=== PATIENT | female | born 1975 ===

== ENCOUNTER 2017-08-22 15:53 | Emergency (ER) | payer SELFPAY ==
[2017-08-22 16:26] VITALS: BP 115/72; PULSE 72; RESP 16; TEMP 98.1; O2SAT 100
--- NOTE | 2017-08-22 17:23 | ED PDOC ---
HPI: Abdomen Time Seen by Provider: 08/22/17 17:11 Chief Complaint (Nursing): Abdominal Pain Chief Complaint (Provider): Suprapubic pain, (+) preg History Per: Patient History/Exam Limitations: no limitations Additional Complaint(s): 42 yo with history of 2 ectopic pregnancies presents with suprapubic pain and low back pain since last night. PT states LMP was 07/10/17 and she had a positive at home. Pt denies vaginal bleeding. PT reports one surgery for ectopic . Past Medical History Reviewed: Historical Data, Nursing Documentation, Vital Signs Vital Signs: Last Vital Signs Temp 98.1 F 08/22/17 16:22 Pulse 72 08/22/17 16:22 Resp 16 08/22/17 16:22 BP 115/72 08/22/17 16:22 Pulse Ox 100 08/22/17 17:24 - Medical History PMH: Gall Bladder Disease (gallstones) - Surgical History Surgical History: Other surgeries: Ectopic - Family History Family History: States: Unknown Family Hx - Home Medications Home Medications: Ambulatory Orders Medication Instructions Recorded Ondansetron ODT [Zofran ODT] 4 mg PO Q6 PRN #16 odt 01/18/16 Oxycodone HCl/Acetaminophen 1 tab PO Q6 PRN #12 tab 01/18/16 [Percocet 325 mg-5 mg] Dicyclomine [Bentyl] 20 mg PO Q6 PRN #12 tab 07/30/16 Famotidine [Pepcid] 40 mg PO DAILY #10 tab 07/30/16 Omeprazole 40 mg PO DAILY #30 tab 07/30/16 Ondansetron [Zofran] 4 mg PO Q8H #8 tab 07/30/16 - Allergies Allergies/Adverse Reactions: Allergies Allergy/AdvReac Type Severity Reaction Status Date / Time No Known Allergies Allergy Verified 07/30/16 00:03 Review of Systems ROS Statement: Except As Marked, All Systems Reviewed And Found Negative Constitutional: Negative for: Fever, Chills Genitourinary Female: Positive for: Pelvic Pain. Negative for: Vaginal Discharge, Vaginal Bleeding Physical Exam - Reviewed Nursing Documentation Reviewed: Yes Vital Signs Reviewed: Yes - Physical Exam Appears: Positive for: Well, Non-toxic, No Acute Distress Head Exam: Positive for: ATRAUMATIC, NORMAL INSPECTION, NORMOCEPHALIC Skin: Positive for: Normal Color, Warm, DRY Eye Exam: Positive for: Normal appearance ENT: Positive for: Normal ENT Inspection Neck: Positive for: Normal, Painless ROM Cardiovascular/Chest: Positive for: Regular Rate, Rhythm Respiratory: Positive for: Normal Breath Sounds. Negative for: Accessory Muscle Use, Respiratory Distress Gastrointestinal/Abdominal: Positive for: Normal Exam, Bowel Sounds, Soft. Negative for: Tenderness Back: Positive for: Normal Inspection Extremity: Positive for: Normal ROM Neurologic/Psych: Positive for: Alert, Oriented - Laboratory Results Result Diagrams: 08/22/17 17:23 08/22/17 17:23 - ECG O2 Sat by Pulse Oximetry: 100 Pulse Ox Interpretation: Normal Medical Decision Making Medical Decision Making: Endorsed pending ENGINEERING VICE PRESIDENT Disposition - Clinical Impression Clinical Impression: Abdominal pain affecting - Patient ED Disposition Is Patient to be Admitted: Transfer of Care - Disposition Disposition: Transfer of Care Disposition Time: 20:06 Condition: GOOD Forms: [facility] [employer] [facility] (Polish)
[2017-08-22 17:34] LABS: HEMOGLOBIN 12.5 g/dL (12.0-16.0); MEAN CELL VOLUME 82.4 fl (81.0-99.0); MEAN CORPUSCULAR HEMOGLOBIN 27.1 pg (27.0-31.0); MEAN CORPUSCULAR HGB CONC 32.9 g/dL (33.0-37.0); RBC 4.6 Mil/uL (3.80-5.20); RED CELL DISTRIBUTION WIDTH 13.8 % (11.5-14.5); WHITE BLOOD COUNT 8.4 K/uL (4.8-10.8)
[2017-08-22 17:43] LABS: ALB/GLOB RATIO 1.1 (1.0-2.1); ALT/SGPT 35 U/L (9-52); AST/SGOT 21 U/L (14-36); BLOOD UREA NITROGEN 13 mg/dl (7-17); CALCIUM 9.3 mg/dL (8.4-10.2); GFR AFRICAN-AMERICAN > 60; GFR NON-AFRICAN AMERICAN > 60
[2017-08-22 18:09] LABS: SQUAMOUS EPITHIAL 7 /hpf (0-5); URINE BACTERIA FEW (<OCC); URINE BILIRUBIN NEGATIVE (NEGATIVE); URINE BLOOD SMALL (NEGATIVE); URINE CLARITY CLOUDY (Clear); URINE COLOR AMBER (YELLOW); URINE GLUCOSE (UA) NEG (Normal); URINE HYALINE CAST 0-2 /hpf (0-2); URINE LEUKOCYTE ESTERASE NEG Leu/uL (Negative); URINE NITRATE NEGATIVE (NEGATIVE); URINE PROTEIN 100 mg/dL (NEGATIVE); URINE UROBILINOGEN 0.2-1.0 mg/dL (0.2-1.0)
--- NOTE | 2017-08-22 19:51 | US ---
EXAM: US , Transvaginal CLINICAL HISTORY: 42 years old, female; Pain; complicated by abdominal or pelvic pain; Generalized abdominal pain; First trimester; Gestational age or lmp: 07/10/2017; Additional info: Pelvic pain, preg, HX ectopic TECHNIQUE: Real-time transvaginal obstetrical ultrasound of the maternal pelvis and a first trimester with image documentation. Transvaginal imaging was used for better evaluation of the fetus and adnexa. COMPARISON: No relevant prior studies available. FINDINGS: Gestation: 0.5 x 0.3 x 0.8 cm saclike structure within uterus. No yolk sac. No pole. Uterus/cervix: Two uterine masses, larger measuring 0.9 x 0.6 x 1.1 cm. Endometrium: 2.0 cm in thickness. Closed cervix. Ovaries: RIGHT ovary: 1.9 x 1.5 x 1.7 cm hypoechoic lesion with few septations. LEFT ovary: Normal. No adnexal masses. Free fluid: No significant free fluid. IMPRESSION: 1. Sac without pole or yolk sac. DDX: Early IUP, blighted ovum, ectopic (with pseudogestational sac). Followup is recommended. 2. Probable complex RIGHT ovarian cyst. 3. Probable fibroid uterus.
--- NOTE | 2017-08-22 20:23 | ED PDOC ---
- Laboratory Results Result Diagrams: 08/22/17 17:23 08/22/17 17:23 Interpretation Of Abnormal: Beta Quant 2879.6 Urine POC: Positive Urine dip results: Positive for: Blood (small). Negative for: Leukocyte Esterase, Nitrate, Ketones, Glucose, Bilirubin - ECG O2 Sat by Pulse Oximetry: 100 (RA) Pulse Ox Interpretation: Normal Medical Decision Making Medical Decision Making: Case endorsed to Deyanira ZAMORA at 2000 due to shift change. Pertinent details reviewed. Patient pending OBGYN consult. Labs and TV ultrasound reviewed. TV U/S results below: CLINICAL HISTORY: 42 years old, female; Pain; complicated by abdominal or pelvic pain; Generalized abdominal pain; First trimester; Gestational age or lmp: 07/10/2017; Additional info: Pelvic pain, preg, HX ectopic TECHNIQUE: Real-time transvaginal obstetrical ultrasound of the maternal pelvis and a first trimester with image documentation. Transvaginal imaging was used for better evaluation of the fetus and adnexa. COMPARISON: No relevant prior studies available. FINDINGS: Gestation: 0.5 x 0.3 x 0.8 cm saclike structure within uterus. No yolk sac. No pole. Uterus/cervix: Two uterine masses, larger measuring 0.9 x 0.6 x 1.1 cm. Endometrium: 2.0 cm in thickness. Closed cervix. Ovaries: RIGHT ovary: 1.9 x 1.5 x 1.7 cm hypoechoic lesion with few septations. LEFT ovary: Normal. No adnexal masses. Free fluid: No significant free fluid. IMPRESSION: 1. Sac without pole or yolk sac. DDX: Early IUP, blighted ovum, ectopic (with pseudogestational sac). Followup is recommended. 2. Probable complex RIGHT ovarian cyst. 3. Probable fibroid uterus. Dictated By: Jarrod Moreira MD , Dictated Date/Time: 08/22/171949 Signed By: Jarrod Moreira MD, Date Signed: 08/22/171949 Transcribed By: [facility] [employer] Date/Time: 08/22/171949 Awaiting OBGYN call back. Patient resting comfortably in be and reports improvement of symptoms, denies any abdominal pain, nausea, vomiting, vaginal bleeding, or urinary complaints. On exam, patient remains AAOx3, in no acute distress. Lungs clear to auscultation, cardiac RRR, abdomen soft, non-tender, repeat neuro exam shows no focal findings. [id number] Vallejo OBGYRomel manager configuration. Ultrasound results reviewed, Dr Vallejo recommends outpatient follow up and repeat U/S within the week. Patient stable for discharge. Patient to follow up in 2 days for repeat beta quant and ultrasound with her OBGYN (Dr Jarvis). Importance of follow up stressed to patient who is agreeable to discharge plan. Return to ED with any new or worsening symptoms. Disposition Discussed With Dr.: Cassie Vallejo (OBGYN manager configuration) Comment: Patient stable for discharge and outpatient follow up within the week. Counseled Patient/Family Regarding: Diagnosis, Need For Followup - Clinical Impression Clinical Impression: Abdominal pain affecting , Abdominal cramps, Abdominal pain during - POA Present On Arrival: None - Disposition Referrals: Hui Jarvis MD [Non-Staff] - Disposition: Routine/Home Disposition Time: 21:38 Condition: STABLE Instructions: Acute Abdomen (Belly Pain), - The Second Month, Round Ligament Pain Forms: [facility] (Luxembourgish), [facility] (Malagasy) Print Language: VIETNAMESE
== END 2017-08-22 22:16 | disposition home or self-care (01) ==
LOC: H.ER 15:53
DX: O26.899 Other specified pregnancy related conditions, unspecified trimester (principal)

== ENCOUNTER 2017-09-08 01:32 | Emergency (ER) | payer SELFPAY ==
[2017-09-08 02:00] VITALS: BP 121/55; PULSE 69; RESP 16; TEMP 98.2; O2SAT 100
--- NOTE | 2017-09-08 02:27 | ED PDOC ---
HPI: Abdomen Time Seen by Provider: 09/08/17 01:56 Chief Complaint (Nursing): Abdominal Pain Chief Complaint (Provider): : pelvic pain History Per: Patient History/Exam Limitations: no limitations Onset/Duration Of Symptoms: Days (4) Current Symptoms Are (Timing): Still Present Location Of Pain/Discomfort: LLQ, Suprapubic Quality Of Discomfort: "Pain" Additional History Per: Patient Additional Complaint(s): 42 y/o female, approximately 7 weeks gestation, presents with pelvic pain x 4 days. Associated low back pain. Patient states she was in ED on 08/22 and had an ultrasound that did not show an IUP. Patient states she did not follow up with anyone since then. Denies fever, nausea/vomiting, chest pain, shortness of breath, palpitations, changes in bowel movements, vaginal bleeding/discharge , urinary symptoms. Abnormal Vaginal Bleeding: No Last Menstral Period: 07/10/17 : 5 Para: 2 Miscarriage: 2 Past Medical History Reviewed: Historical Data, Nursing Documentation, Vital Signs Vital Signs: Last Vital Signs Temp 98.2 F 09/08/17 01:55 Pulse 69 09/08/17 01:55 Resp 16 09/08/17 01:55 BP 121/55 L 09/08/17 01:55 Pulse Ox 100 09/08/17 02:49 - Medical History PMH: Gall Bladder Disease (gallstones) - Surgical History Surgical History: - Family History Family History: States: Unknown Family Hx - Home Medications Home Medications: Ambulatory Orders Medication Instructions Recorded Ondansetron ODT [Zofran ODT] 4 mg PO Q6 PRN #16 odt 01/18/16 Oxycodone HCl/Acetaminophen 1 tab PO Q6 PRN #12 tab 01/18/16 [Percocet 325 mg-5 mg] Dicyclomine [Bentyl] 20 mg PO Q6 PRN #12 tab 07/30/16 Famotidine [Pepcid] 40 mg PO DAILY #10 tab 07/30/16 Omeprazole 40 mg PO DAILY #30 tab 07/30/16 Ondansetron [Zofran] 4 mg PO Q8H #8 tab 07/30/16 - Allergies Allergies/Adverse Reactions: Allergies Allergy/AdvReac Type Severity Reaction Status Date / Time No Known Allergies Allergy Verified 07/30/16 00:03 Review of Systems ROS Statement: Except As Marked, All Systems Reviewed And Found Negative Genitourinary Female: Positive for: Pelvic Pain Musculoskeletal: Positive for: Back Pain Physical Exam - Reviewed Nursing Documentation Reviewed: Yes Vital Signs Reviewed: Yes - Physical Exam Appears: Positive for: Well, Non-toxic, No Acute Distress Head Exam: Positive for: ATRAUMATIC, NORMAL INSPECTION, NORMOCEPHALIC Skin: Positive for: Normal Color Eye Exam: Positive for: Normal appearance ENT: Positive for: Normal ENT Inspection Cardiovascular/Chest: Positive for: Regular Rate, Rhythm Respiratory: Positive for: Normal Breath Sounds Gastrointestinal/Abdominal: Positive for: Bowel Sounds, Soft, Tenderness ( suprapubic, LLQ) Back: Positive for: Normal Inspection Extremity: Positive for: Normal ROM Neurologic/Psych: Positive for: Alert, Oriented - Laboratory Results Result Diagrams: 09/08/17 03:21 09/08/17 03:21 - ECG O2 Sat by Pulse Oximetry: 100 - Progress ED Course And Treament: labs, urine, OB TV u/s EXAM: US , Transvaginal CLINICAL HISTORY: 42 years old, female; Pain; complicated by abdominal or pelvic pain; Lower; First trimester; Gestational age or lmp: 07/10/2017; ; Additional info: ; Pelvic pain TECHNIQUE: Real-time transvaginal obstetrical ultrasound of the maternal pelvis and a first trimester with image documentation. Transvaginal imaging was used for better evaluation of the fetus and adnexa. 5 Real time cine loop images are submitted. COMPARISON: US - OB TRANSVAGINAL 2017-08-22 17:52 FINDINGS: Beta-hCG level: Beta hCG 8272.40 Gestation: There is a gestational sac in the uterine fundus. There is a yolk sac present measuring 0.45 cm. There is no embryonic pole demonstrated. The average ultrasound age of the gestation calculated from mean sac diameter is 5 weeks and 4 days. Uterus/cervix: Cervix is closed and measures 5.2 cm. Heterogeneous uterus. Multiple hypoechoic nodules representing intramural fibroids. A fibroid in the right uterus measures 1.3 x 1.2 x 0.8 cm. The left uterus fibroid measures 0.8 x 1.3 x 0.7 cm. The uterine fundal fibroid measures 0.9 x 1.2 x 0.7 cm. Ovaries: The right ovary is not visualized. The left ovary is not visualized. Free fluid: No free fluid. IMPRESSION: 1. Intrauterine gestational sac with yolk sac. Follow-up examination is advised to document viability of the fetus. 2. Average ultrasound age of 5 weeks and 4 days. 3. No evidence of ectopic Patient educated on findings, advised follow up in 48 hours. Return precautions given. Disposition - Clinical Impression Clinical Impression: Uterus fibroma, Abdominal pain in , Threatened - Patient ED Disposition Is Patient to be Admitted: No Counseled Patient/Family Regarding: Studies Performed, Diagnosis, Need For Followup - Disposition [facility] Disposition: Routine/Home Disposition Time: 05:22 Condition: STABLE Instructions: Threatened Miscarriage (DC), Uterine Fibroids (DC) Print Language: IRISH
[2017-09-08 03:32] LABS: BASO % 0.3 % (0.0-2.0); EOS # 0.3 K/uL (0.0-0.7); EOS % 2.8 % (0.0-4.0); HEMOGLOBIN 12.4 g/dL (12.0-16.0); LYMPH # 2.3 K/uL (1.0-4.3); LYMPH % 21.7 % (20.0-40.0); MEAN CELL VOLUME 81.9 fl (81.0-99.0); MEAN CORPUSCULAR HEMOGLOBIN 27.2 pg (27.0-31.0); MEAN CORPUSCULAR HGB CONC 33.2 g/dL (33.0-37.0); MEAN PLATELET VOLUME 8.1 fl (7.2-11.7); MONO # 0.9 K/uL (0.0-0.8); MONO % 8.2 % (0.0-10.0); NEUT # 7.1 K/uL (1.8-7.0); RBC 4.56 Mil/uL (3.80-5.20); RED CELL DISTRIBUTION WIDTH 13.3 % (11.5-14.5); WHITE BLOOD COUNT 10.5 K/uL (4.8-10.8)
[2017-09-08 04:04] LABS: ALB/GLOB RATIO 1.1 (1.0-2.1); ALT/SGPT 39 U/L (9-52); AST/SGOT 26 U/L (14-36); BLOOD UREA NITROGEN 18 mg/dl (7-17); CALCIUM 9.9 mg/dL (8.4-10.2); GFR AFRICAN-AMERICAN > 60; GFR NON-AFRICAN AMERICAN > 60
--- NOTE | 2017-09-08 05:19 | US ---
EXAM: US , Transvaginal CLINICAL HISTORY: 42 years old, female; Pain; complicated by abdominal or pelvic pain; Lower; First trimester; Gestational age or lmp: 07/10/2017; ; Additional info: ; Pelvic pain TECHNIQUE: Real-time transvaginal obstetrical ultrasound of the maternal pelvis and a first trimester with image documentation. Transvaginal imaging was used for better evaluation of the fetus and adnexa. 5 Real time cine loop images are submitted. COMPARISON: US - OB TRANSVAGINAL 2017-08-22 17:52 FINDINGS: Beta-hCG level: Beta hCG 8272.40 Gestation: There is a gestational sac in the uterine fundus. There is a yolk sac present measuring 0.45 cm. There is no embryonic pole demonstrated. The average ultrasound age of the gestation calculated from mean sac diameter is 5 weeks and 4 days. Uterus/cervix: Cervix is closed and measures 5.2 cm. Heterogeneous uterus. Multiple hypoechoic nodules representing intramural fibroids. A fibroid in the right uterus measures 1.3 x 1.2 x 0.8 cm. The left uterus fibroid measures 0.8 x 1.3 x 0.7 cm. The uterine fundal fibroid measures 0.9 x 1.2 x 0.7 cm. Ovaries: The right ovary is not visualized. The left ovary is not visualized. Free fluid: No free fluid. IMPRESSION: 1. Intrauterine gestational sac with yolk sac. Follow-up examination is advised to document viability of the fetus. 2. Average ultrasound age of 5 weeks and 4 days. 3. No evidence of ectopic .
== END 2017-09-08 05:47 | disposition home or self-care (01) ==
LOC: H.ER 01:32
DX: O20.0 Threatened abortion (principal); O26.891 Other specified pregnancy related conditions, first trimester; Z3A.01 Less than 8 weeks gestation of pregnancy

== ENCOUNTER 2017-10-14 10:55 | Emergency (ER) | payer OTHER ==
[2017-10-14 10:59] VITALS: BMI 33.4
[2017-10-14 11:00] VITALS: TEMP 98.2
[2017-10-14 12:26] LABS: SQUAMOUS EPITHIAL 4 /hpf (0-5); URINE BACTERIA RARE (<OCC); URINE BILIRUBIN NEGATIVE (NEGATIVE); URINE BLOOD SMALL (NEGATIVE); URINE CLARITY SLIGHTY-CLOUDY (Clear); URINE COLOR YELLOW (YELLOW); URINE GLUCOSE (UA) NEG (Normal); URINE LEUKOCYTE ESTERASE TRACE Leu/uL (Negative); URINE PROTEIN NEGATIVE (NEGATIVE); URINE UROBILINOGEN 0.2-1.0 mg/dL (0.2-1.0)
[2017-10-14] MEDS ORDERED: Sodium Chloride 0.9% 1,000 ML IV STA (12:41)
[2017-10-14 13:09] LABS: BASO % 0.3 % (0.0-2.0); EOS # 0.2 K/uL (0.0-0.7); HEMOGLOBIN 11.8 g/dL (12.0-16.0); LYMPH # 2.2 K/uL (1.0-4.3); LYMPH % 24.3 % (20.0-40.0); MEAN CELL VOLUME 81.7 fl (81.0-99.0); MEAN CORPUSCULAR HEMOGLOBIN 27.1 pg (27.0-31.0); MEAN CORPUSCULAR HGB CONC 33.1 g/dL (33.0-37.0); MEAN PLATELET VOLUME 8.2 fl (7.2-11.7); MONO # 0.9 K/uL (0.0-0.8); MONO % 10.1 % (0.0-10.0); NEUT # 5.6 K/uL (1.8-7.0); NEUT % 63.3 % (50.0-75.0); RBC 4.36 Mil/uL (3.80-5.20); WHITE BLOOD COUNT 8.9 K/uL (4.8-10.8)
[2017-10-14 13:20] LABS: ALB/GLOB RATIO 1.1 (1.0-2.1); ALBUMIN 3.8 g/dL (3.5-5.0); ALT/SGPT 34 U/L (9-52); AST/SGOT 27 U/L (14-36); BLOOD UREA NITROGEN 12 mg/dl (7-17); CALCIUM 9.3 mg/dL (8.4-10.2); GFR AFRICAN-AMERICAN > 60; GFR NON-AFRICAN AMERICAN > 60; LIPASE 82 U/L (23-300)
--- NOTE | 2017-10-14 15:06 | ED PDOC ---
HPI: Abdomen Time Seen by Provider: 10/14/17 11:35 Chief Complaint (Nursing): Abdominal Pain Chief Complaint (Provider): dyrsuria, back pain, pelvic pain History Per: Patient History/Exam Limitations: no limitations Onset/Duration Of Symptoms: Days (3), Gradual Current Symptoms Are (Timing): Still Present Location Of Pain/Discomfort: Suprapubic Quality Of Discomfort: Cramping Associated Symptoms: Back Pain, Urinary Symptoms. denies: Nausea, Vomiting, Diarrhea Exacerbating Factors: None Alleviating Factors: None Additional Complaint(s): 42yo female states had spontaneous about 3 weeks ago, now presents c/o dysuria, pelvic discomfort radiating to back worsening over last 4-5 days. Denies vaginal bleeding or discharge. Denies fever, weakness or upper abdominal pain. Past Medical History Reviewed: Historical Data, Nursing Documentation, Vital Signs Vital Signs: Last Vital Signs Temp 98.2 F 10/14/17 11:21 Pulse 77 10/14/17 11:21 Resp 17 10/14/17 11:21 BP 127/82 10/14/17 11:21 Pulse Ox 99 10/14/17 15:08 - Medical History PMH: Gall Bladder Disease (gallstones) - Surgical History Surgical History: - Family History Family History: States: Unknown Family Hx - Social History Current smoker - smoking cessation education provided: No - Home Medications Home Medications: Ambulatory Orders Medication Instructions Recorded Ondansetron ODT [Zofran ODT] 4 mg PO Q6 PRN #16 odt 01/18/16 Oxycodone HCl/Acetaminophen 1 tab PO Q6 PRN #12 tab 01/18/16 [Percocet 325 mg-5 mg] Dicyclomine [Bentyl] 20 mg PO Q6 PRN #12 tab 07/30/16 Famotidine [Pepcid] 40 mg PO DAILY #10 tab 07/30/16 Omeprazole 40 mg PO DAILY #30 tab 07/30/16 Ondansetron [Zofran] 4 mg PO Q8H #8 tab 07/30/16 Ciprofloxacin [Cipro] 500 mg PO BID #14 tab 10/14/17 Ibuprofen [Motrin Tab] 600 mg PO Q6 PRN #15 tab 10/14/17 - Allergies Allergies/Adverse Reactions: Allergies Allergy/AdvReac Type Severity Reaction Status Date / Time No Known Allergies Allergy Verified 10/14/17 11:20 Review of Systems Constitutional: Negative for: Fever, Chills, Weakness, Malaise Respiratory: Negative for: Shortness of Breath Gastrointestinal: Negative for: Diarrhea Genitourinary Female: Positive for: Dysuria, Pelvic Pain. Negative for: Vaginal Discharge, Vaginal Bleeding Musculoskeletal: Negative for: Neck Pain Skin: Negative for: Rash, Lesions, Jaundice Neurological: Negative for: Weakness, Numbness, Headache Physical Exam - Reviewed Nursing Documentation Reviewed: Yes Vital Signs Reviewed: Yes - Physical Exam Appears: Positive for: Well, Non-toxic, No Acute Distress Head Exam: Positive for: ATRAUMATIC, NORMAL INSPECTION, NORMOCEPHALIC Skin: Positive for: Normal Color, Warm, DRY Eye Exam: Positive for: EOMI, Normal appearance, PERRL ENT: Positive for: Normal ENT Inspection Cardiovascular/Chest: Positive for: Regular Rate, Rhythm Respiratory: Positive for: CNT, Normal Breath Sounds Gastrointestinal/Abdominal: Positive for: Soft. Negative for: Tenderness, Guarding Back: Positive for: Normal Inspection. Negative for: L CVA Tenderness, R CVA Tenderness Extremity: Positive for: Normal ROM Neurologic/Psych: Positive for: Alert, Oriented. Negative for: Motor/Sensory Deficits - Laboratory Results Result Diagrams: 10/14/17 13:03 10/14/17 13:03 - ECG ECG: Positive for: Interpreted By Me O2 Sat by Pulse Oximetry: 99 Pulse Ox Interpretation: Normal Medical Decision Making Medical Decision Making: workup for pelvic and urinary discomfort initiated labs and urine reviewed Urine cx ordered Will give dose rocephin and obtain pelvic US given recent spont Disposition - Clinical Impression Clinical Impression: Urinary tract infection - Patient ED Disposition Is Patient to be Admitted: No - Disposition Disposition: Routine/Home Disposition Time: 15:11 Condition: STABLE Additional Instructions: Return to ER for any worse or new symptoms. Take medications as directed. See ASSOCIATE MEDICAL DIRECTOR doctor in next week for re-evaluation/ Prescriptions: Ciprofloxacin [Cipro] 500 mg PO BID #14 tab Ibuprofen [Motrin Tab] 600 mg PO Q6 PRN #15 tab PRN Reason: Pain, Moderate (4-7) Forms: [facility] (Finnish) Print Language: HONG KONGER
[2017-10-14] MEDS ORDERED: cefTRIAXone (Rocephin) 1 gm Inj ONE (15:39)
--- NOTE | 2017-10-14 15:59 | US ---
HISTORY: recent spontaneous , pelvic pain COMPARISON: None available. TECHNIQUE: Transabdominal and transvaginal FINDINGS: UTERUS: Measures 14.9 x 5.5 x 6.9 cm. Normal in size and appearance. No fibroid or other mass lesion seen. ENDOMETRIUM: Measures 11 mm in diameter. Unremarkable. CERVIX: No cervical abnormality identified. RIGHT OVARY: Measures 2.8 x 2.1 x 2.9 cm. No solid mass. Normal flow. LEFT OVARY: Measures 3.1 x 2.1 x 3.3 cm. No solid mass. Normal flow. Simple cyst, 2.5 x 1.7 x 1.7 cm. FREE FLUID: No significant free fluid noted. OTHER FINDINGS: None. IMPRESSION: 2.5 cm simple left ovarian cyst. Otherwise unremarkable.
[2017-10-14 16:07] VITALS: BP 119/80; PULSE 69; RESP 20; O2SAT 100
== END 2017-10-14 17:39 | disposition home or self-care (01) ==
LOC: H.ER 10:55
DX: N39.0 Urinary tract infection, site not specified (principal)
CPT/HCPCS: 76830; 76856; 80053; 81003; 81025; 83690; 84702; 85025; 87086; 96361; 96365; 96375; 99283; J0696; J1885; J7040